=== PATIENT | female | born 1980 | race Caucasian/White ===

== ENCOUNTER → 2020-06-26 | Outpatient (CLI) | payer BC | END | disposition home or self-care (01) | LOC: LABWHC1 13:10 | PROVIDERS: ATTEND Nurse Practitioner Family | DX: J30.89 Other allergic rhinitis (principal) | CPT/HCPCS: 36415 ==

== ENCOUNTER 2022-10-24 05:40 | Day surgery (SDC) | payer BC ==
[2022-10-21 12:01] VITALS: BMI 22.6
--- NOTE | 2022-10-23 12:29 | P.HPOB ---
History of Present Illness H&P Date: 10/23/22 Chief Complaint: Menorrhagia and persistent low-grade cervical dysplasia This patient is a pleasant 41-year-old 3 para 3 female with long- standing menorrhagia and also has had persistent mild cervical dysplasia. Patient's periods are very heavy and interfering with daily life activities. She's had a pelvic ultrasound which showed a small endometrial polyp but otherwise normal. Patient also had a colposcopy done in May of last year that showed persistent DAYAN-1/mild dysplasia of the ectocervix. Patient is now requesting surgical treatment of her menorrhagia and LEEP excision of the ectocervix. Review of Systems Genitourinary: Reports as per HPI Menstruation: Reports as per HPI Past Medical History Past Medical History: No Reported History Additional Past Medical History / Comment(s): SEASONAL ALLERGIES. HEAVY MENSES. RECURRING ABN. PAP SMEAR History of Any Multi-Drug Resistant Organisms: None Reported Past Surgical History: No Surgical Hx Reported Past Anesthesia/Blood Transfusion Reactions: No Reported Reaction Past Psychological History: No Psychological Hx Reported Smoking Status: Never smoker Past Alcohol Use History: None Reported Past Drug Use History: None Reported - Past Family History Mother Family Medical History: No Reported History Medications and Allergies Home Medications Medication Instructions Recorded Confirmed Type No Known Home Medications 10/21/22 10/21/22 History Allergies Allergy/AdvReac Type Severity Reaction Status Date / Time No Known Allergies Allergy Verified 10/21/22 11:57 Exam - OBG Physical Exam Abdomen: bowel sounds normal, no diffuse tenderness, no bruit present, no guarding noted, no hepatomegaly, no splenomegaly, no mass Vulva: both: normal Vagina: normal moisture, no discharge Cervix: no lesion, no discharge Uterus: normal size, normal contour Results Transvaginal ultrasound in May 2020 showed a normal uterus with a 6 mm endometrial polyp. Colposcopy showed DAYAN-1/mild dysplasia of the ectocervix Assessment and Plan Assessment: This is a pleasant 41-year-old 3 para 3 female with long-standing menorrhagia and also persistent low grade ectocervical dysplasia. Plan is hysteroscopy, dilation and curettage, NovaSure endometrial ablation with colposcopy and LEEP excision of the ectocervix and endocervix. Patient understands these surgeries and risks and risks of infection, bleeding, possible uterine perforation, and/or thermal injury. All the patient's questions are answered and a written consent is obtained. (1) Menorrhagia Status: Acute Code(s): N92.0 - EXCESSIVE AND FREQUENT MENSTRUATION WITH REGULAR CYCLE SNOMED Code(s): 630673897 (2) Low grade squamous intraepithelial lesion (LGSIL) on cervical Pap smear Status: Acute Code(s): R87.612 - LOW GRADE INTREPITH LESION CYTO SMR CRVX (LGSIL) SNOMED Code(s): 45666370937653
[~2022-10-24 05:40] MED LIST: LACTATED RINGERS 1,000 ML IV SCH; ONDANSETRON 4 MG/2 ML VIAL IVP ONE; Pre Op ABX Message 1 EACH MISC MISCELLANE ONE
[2022-10-24] MEDS ORDERED: LIDOCAINE 1% (10MG/ML) FOR IV START INTRADERMA ONE (06:25)
[2022-10-24] MEDS ORDERED: DEXAMETHASONE SOD PHOSPHATE 4 MG/ML 1 ML VIAL IV ONE (06:30)
[2022-10-24] MEDS ORDERED: fentaNYL (PF) 50 MCG/ML 2 ML AMP ONE (06:48)
[2022-10-24] MEDS ORDERED: PROPOFOL 10 MG/ML 20 ML VIAL IV ONE (06:48)
[2022-10-24] MEDS ORDERED: LIDOCAINE 2% INJ 20 MG/ML (2 ML VIAL) ONE (06:48)
[2022-10-24] MEDS ORDERED: KETOROLAC 15 MG/ML 1 ML VIAL ONE (06:48)
[2022-10-24] MEDS ORDERED: HYDROmorphone 0.5 MG/0.5 ML SYRINGE IVP PRN (07:00)
[2022-10-24] MEDS ORDERED: fentaNYL (PF) 50 MCG/ML 2 ML AMP IV PRN (07:00)
[2022-10-24] MEDS ORDERED: FERRIC SUBSULFATE (MONSELS) JAR TOPICAL ONE (07:15)
[2022-10-24] MEDS ORDERED: IODINE/POTASSIUM IODIDE 14 ML BOTTLE TOPICAL ONE (07:15)
--- NOTE | 2022-10-24 07:37 | P.OP ---
Date of Procedure: 10/24/22 Preoperative Diagnosis: #1: Menorrhagia. #2: Persistent low-grade cervical dysplasia Postoperative Diagnosis: Same Procedure(s) Performed: #1: Hysteroscopy. #2: Dilation and curettage. #3: NovaSure endometrial ablation. #4: Colposcopy. #5: LEEP excision of the ecto and endocervix Anesthesia: other (LMA) Surgeon: Silver Escobar Estimated Blood Loss (ml): 10 Urine output (ml): 10 Pathology: other (Uterine curettings, ectocervix and endocervix) Condition: stable Disposition: PACU Indications for Procedure: Please see dictated H&P for intimate details of this patient's admission. In brief summary this is a pleasant 41-year-old 3 para 3 female whose had long-standing menorrhagia and also persistent low-grade cervical dysplasia. Patient is requesting trial of endometrial ablation for treatment LEEP excision of this cervical area. Patient understands the procedure and risks and risks of infection, bleeding, possible uterine perforation, and/or thermal injury. All the patient's questions are answered and a written consent is obtained. Operative Findings: This patient is taken to the operating room where she is laid in the supine position. She subsequent undergoes general anesthesia without incident. With an adequate level of anesthesia she's placed in dorsal lithotomy position. She has a vaginal and perineal prep and drape. Examination under anesthesia shows a retroverted uterus of normal size. Weighted speculum was placed in the posterior vagina. The bladder is then drained for 10 mL of clear urine. An Allis clamp was placed on the anterior lip of the cervix. The uterus is then sounded to 9 cm. Gentle dilation of the cervix is done to allow the hysteroscope easily and the uterine cavity. Using saline solution, hysteroscopy is performed and the uterine cavity appears to be normal without evidence of polyps fibroids or growths. It is measured a length of 6.0 cm. With this done the hysteroscope was removed and the cervix dilated slightly more to allow a small curette easily uterine cavity. A gentle but thorough 4 quadrant curettage is then done. This completed the NovaSure device is then opened set at a length of 6.0 cm. It is seated in place and opens up to a width of 4.5 cm. After passing the cavity integrity test, is then enabled at 149 W for 79 seconds. The NovaSure device is then removed and appears to be intact. Hysteroscopy is performed again and appears to have excellent results with ablation up to the endocervix. This completed the Allis clamp and weighted speculum removed. The coated speculum was then placed into the vaginal vault. Colposcopy is performed. Using a large LEEP loop is 60/70 cutting cautery setting, 1 pass of the ectocervix is done and complete removal of the transformation zone. A second pass is made with a smaller LEEP loop and the endocervix was sampled. This completed using the cautery I cauterized the largest of the ectocervix endocervical bed. Excellent hemostasis is noted. Monsel solution is applied for added hemostasis With good hemostasis noted the procedure is then ended. The speculum was removed. All counts are correct 3. There are no complications. Patient is awakened from anesthesia and taken recovery room in satisfactory condition.
[2022-10-24 07:38] VITALS: TEMP 97.5
[2022-10-24 08:27] VITALS: RESP 20
[2022-10-24 09:06] VITALS: BP 139/86; PULSE 67
== END 2022-10-24 09:09 | disposition home or self-care (01) ==
LOC: OR 05:40
PROVIDERS: ATTEND Obstetrics & Gynecology
DX: N92.0 Excessive and frequent menstruation with regular cycle (principal)
CPT/HCPCS: 58563; 57460; 81025; 88305; 88307; J1100; J2405; J3010; J1885; J2704; J2001